=== PATIENT | female | born 1970 | race African-American/Black ===

== ENCOUNTER 2020-09-29 15:51 | Emergency (ER) | payer MEDICAID ==
[~2020-09-29] VITALS: Ht 157.5 cm; Wt 71.0 kg
[2020-09-29 19:19] LABS: BASOPHILS % 0.3 % (0.0-2.0); EOSINOPHILS % 0.7 % (0.0-5.0); HEMATOCRIT. 41.8 % (36.0-48.0); LYMPHOCYTES % 24.5 % (20.0-50.0); MEAN CORPUSCULAR HEMOGLOBIN 32.4 pg (28.0-32.0); MEAN CORPUSCULAR VOLUME 97.1 fL (81.0-99.0); MEAN PLATELET VOLUME 7.7 fl (7.4-10.4); MONOCYTES % 7.5 % (2.0-8.0); PLATELET 273 x1000/uL (130-400); RED CELL DISTRIBUTION WIDTH 14.8 % (11.6-14.6)
[2020-09-29 19:27] LABS: CHLORIDE 106 mEq/L (98-107)
[2020-09-29 19:28] LABS: PROTHROMBIN TIME 10.5 sec (9.6-11.0)
[2020-09-29 19:38] LABS: B-HCG QUANTITATIVE < 1.0 mIU/mL (<3)
[2020-09-29 19:49] LABS: CLARITY URINE CLOUDY (CLEAR); KETONES URINE 2+ (NEGATIVE); LEUKOCYTE ESTERASE URINE 1+ (NEGATIVE); NITRITE URINE NEGATIVE (NEGATIVE); OCCULT BLOOD URINE 3+ (NEGATIVE); PH URINE 5.5 (4.5-8.0); PROTEIN URINE TRACE (NEGATIVE); SPECIFIC GRAVITY URINE 1.025 (1.005-1.030)
[2020-09-29 19:59] LABS: COLOR URINE DARK YELLOW (YELLOW)
[2020-09-29 20:25] VITALS: BP 155/74
== END 2020-09-29 20:26 | disposition home or self-care (01) ==
LOC: ER 15:51
DX: D25.9 Leiomyoma of uterus, unspecified (principal); Z88.2 Allergy status to sulfonamides
CPT/HCPCS: 36415; 76830; 76856; 80053; 81003; 84702; 85025; 86850; 86900; 93005; 99285

== ENCOUNTER 2021-12-12 21:48 | Emergency (ER) | payer MEDICAID ==
[~2021-12-12] VITALS: Ht 157.5 cm; Wt 70.2 kg
[~2021-12-12 21:48] MED LIST: AMLO10TA80 PO; HYDR-4135 PO; OMEP40CA20 MT
[2021-12-13 00:50] LABS: BASOPHILS % 0.8 % (0.0-2.0); EOSINOPHILS % 1.5 % (0.0-5.0); HEMATOCRIT. 35.7 % (36.0-48.0); HEMOGLOBIN. 12.5 g/dL (12.0-16.0); LYMPHOCYTES % 24.3 % (20.0-50.0); MEAN CORPUSCULAR HEMOGLOBIN 33.8 pg (28.0-32.0); MEAN CORPUSCULAR VOLUME 96.5 fL (81.0-99.0); MONOCYTES % 7.8 % (2.0-8.0); NEUTROPHILS % 65.6 % (40.0-76.0); PLATELET 425 x1000/uL (130-400); RED CELL DISTRIBUTION WIDTH 14.2 % (11.6-14.6)
[2021-12-13 00:55] LABS: CHLORIDE 112 mEq/L (98-107)
[2021-12-13] MEDS ORDERED: FUROSEMIDE 20MG/2ML VIAL IVP SCH (01:15)
[2021-12-13 02:00] VITALS: BP 138/82
== END 2021-12-13 02:10 | disposition home or self-care (01) ==
LOC: ER 21:59
DX: R60.9 Edema, unspecified (principal); F17.200 Nicotine dependence, unspecified, uncomplicated; Z88.2 Allergy status to sulfonamides; Z98.890 Other specified postprocedural states
CPT/HCPCS: 36415; 71045; 80053; 83880; 84484; 85025; 93005; 96374; 99285; J1940

== ENCOUNTER 2023-04-29 18:48 | Emergency (ER) | payer MEDICAID, OTHER ==
[~2023-04-29] VITALS: Ht 157.5 cm; Wt 90.2 kg
[2023-04-29 18:59] VITALS: O2SAT 98
[2023-04-29] MEDS ORDERED: KETOROLAC 60MG/2ML VIAL IM ONE (21:45)
[2023-04-29 22:09] VITALS: BP 135/69
[2023-04-29] MEDS ORDERED: NAP5EC MT (22:14)
[2023-04-29] MEDS ORDERED: LIDO700A15 TP (22:14)
[2023-04-29 22:38] VITALS: PULSE 90; RESP 20; TEMP 98.4
== END 2023-04-29 22:39 | disposition home or self-care (01) ==
LOC: ER 18:48
DX: M54.50 Low back pain, unspecified (principal); I10 Essential (primary) hypertension; Z88.2 Allergy status to sulfonamides; Z98.890 Other specified postprocedural states
CPT/HCPCS: 81025; 96372; 99283; J1885; Z7610

== ENCOUNTER 2024-12-16 18:28 | Emergency (ER) | payer MEDICAID, OTHER ==
[~2024-12-16] VITALS: Ht 165.1 cm; Wt 91.0 kg
[~2024-12-16 18:28] MED LIST changes: -HYDR-4135 PO; +HYDR50TA39 PO; +LIDO700A15 TP; +NAPR-1495 MT
[2024-12-16 18:29] VITALS: O2SAT 99
[2024-12-16 18:38] VITALS: BP 137/75; PULSE 90; RESP 14; TEMP 36.3; O2SAT 98
[2024-12-16 19:23] LABS: CLARITY URINE CLEAR (CLEAR); COLOR URINE YELLOW (YELLOW); GLUCOSE URINE NEGATIVE (NEGATIVE); KETONES URINE TRACE (NEGATIVE); LEUKOCYTE ESTERASE URINE NEGATIVE (NEGATIVE); NITRITE URINE NEGATIVE (NEGATIVE); OCCULT BLOOD URINE NEGATIVE (NEGATIVE); PROTEIN URINE NEGATIVE (NEGATIVE); SPECIFIC GRAVITY URINE 1.016 (1.005-1.030); UROBILINOGEN URINE 0.2 E.U./dL (0.2-1.0)
[2024-12-16] MEDS: ACETAMINOPHEN 500MG TABLET PO ONE (19:52)
[2024-12-16] MEDS: METHOCARBAMOL 500MG TABLET PO ONE (19:53)
[2024-12-16 20:10] LABS: BASOPHILS % 0.3 % (0.0-2.0); EOSINOPHILS % 1.2 % (0.0-5.0); HEMATOCRIT. 38.6 % (36.0-48.0); HEMOGLOBIN. 12.7 g/dL (12.0-16.0); LYMPHOCYTES % 23.7 % (20.0-50.0); MEAN CORPUSCULAR HEMOGLOBIN 30.2 pg (28.0-32.0); MEAN CORPUSCULAR VOLUME 91.7 fL (81.0-99.0); MEAN PLATELET VOLUME 8.8 fl (7.4-10.4); MONOCYTES % 6.8 % (2.0-8.0); PLATELET 296 x1000/uL (130-400); RED BLOOD CELL COUNT 4.21 mill/uL (4.2-5.4); RED CELL DISTRIBUTION WIDTH 15.2 % (11.6-14.6); WHITE BLOOD COUNT 9.7 x1000/uL (4.5-11.0)
[2024-12-16 20:18] LABS: CHLORIDE 104 mEq/L (98-107); POTASSIUM 3.2 mEq/L (3.5-5.1); SODIUM 142 mEq/L (136-145)
[2024-12-16 20:19] LABS: CALCIUM 9.6 mg/dL (8.7-10.4); CARBON DIOXIDE 29 mEq/L (21-32)
[2024-12-16 20:24] LABS: CREATININE 0.7 mg/dL (0.6-1.0); GLUCOSE 96 mg/dL (70-105); UREA NITROGEN BLOOD 12 mg/dL (9-23)
[2024-12-16 20:25] LABS: TROPONIN I HIGH SENSITIVITY < 4 ng/L (3.0-34)
[2024-12-16 20:31] LABS: HCG SCREEN NEGATIVE
[2024-12-16] MEDS ORDERED: IBUP-2030 MT (20:32)
[2024-12-16] MEDS: POTASSIUM CHLORIDE 20MEQ/PACKET PO NR (20:46)
== END 2024-12-16 20:52 | disposition home or self-care (01) ==
LOC: ER 18:28
DX: G89.29 Other chronic pain (principal); M54.9 Dorsalgia, unspecified; E87.6 Hypokalemia; I10 Essential (primary) hypertension; Z79.1 Long term (current) use of non-steroidal anti-inflammatories (NSAID); Z79.899 Other long term (current) drug therapy; Z88.2 Allergy status to sulfonamides
CPT/HCPCS: 36415; 80048; 81003; 84484; 84703; 85025; 93005; 99284